=== PATIENT | female | born 1980 | race Asian ===

== ENCOUNTER 2018-04-17 21:38 | Emergency (ER) | payer OTHER ==
[~2018-04-17] VITALS: Ht 160 cm; Wt 59.0 kg
[2018-04-17] MEDS ORDERED: PRE NATAL (22:30)
[2018-04-17] MEDS ORDERED: VIT D (22:30)
--- NOTE | 2018-04-17 23:18 | NUR ---
Patient discharged to home in stable conditon. Written and verbal after care instructions given. Patient verbalizes understanding of instructions. Patient able to ambulate unassisted with a steady gait. Patient left with all personal belongings.
[2018-04-17 23:24] VITALS: BP 118/92
== END 2018-04-17 23:18 | disposition home or self-care (01) ==
LOC: ER 21:40
DX: S61.214A Laceration without foreign body of right ring finger without damage to nail, initial encounter (principal); W26.8XXA Contact with other sharp object(s), not elsewhere classified, initial encounter; Y93.89 Activity, other specified; Y92.89 Other specified places as the place of occurrence of the external cause; Y99.8 Other external cause status
CPT/HCPCS: A4663